=== PATIENT | female | born 1980 | race Caucasian/White ===

== ENCOUNTER 2016-08-16 07:52 | Outpatient (CLI) | payer OTHER ==
[~2016-08-16] VITALS: Ht 152.4 cm; Wt 73.9 kg
[~2016-08-16 07:52] MED LIST: ENDOCET 5-3251 EACH PO; MOTRIN800 MG PO; Zofran PO
[2016-08-16 08:10] VITALS: BP 137/89
[2016-08-16] MEDS ORDERED: DICLEGIS DR 101 EACH PO (08:27)
[2016-08-16] MEDS ORDERED: PROMETHAZINE HC25 M1 PO (08:28)
[2016-08-16] MEDS ORDERED: IMITREX100 MG PO (08:28)
[2016-08-16] MEDS ORDERED: PRENATAL TABLE1 EAC3 PO (08:29)
[2016-08-16] MEDS ORDERED: PAMELOR50 MG PO (08:30)
[2016-08-16 09:02] VITALS: BP 130/91
[2016-08-16 09:22] LABS: ADD MIUA? YES; BILIRUBIN NEGATIVE; BLOOD SMALL; COLOR AMBER ((YELLOW)); GLUCOSE (STRIP) NEGATIVE; KETONES 80; LEUKOCYTES NEGATIVE; NITRITE NEGATIVE; PROTEIN (STRIP) 30; SPECIFIC GRAVITY 1.023 (1.000-1.030); UROBILINOGEN 0.2 MG/DL (0.2-1.0)
[2016-08-16 09:32] LABS: BACTERIA NONE SEEN /HPF; EPITHELIAL CELLS RARE /HPF; MUCUS 3+ /LPF; UCUL ADDED? NO; WHITE BLOOD CELLS 0-5 /HPF (0-5)
[2016-08-16 10:04] VITALS: BP 121/64
[2016-08-16 10:55] VITALS: BP 120/59
== END 2016-08-16 12:40 | disposition home or self-care (01) ==
LOC: LDRP-OP → 2WEST 07:54 → LDRP-OP 11-24 12:00
PROVIDERS: Midwife
DX: O21.0 Mild hyperemesis gravidarum (principal); O99.89 Other specified diseases and conditions complicating pregnancy, childbirth and the puerperium; Z3A.30 30 weeks gestation of pregnancy
CPT/HCPCS: 59025; 81003; G0378; J2405; J2765; J7030

== ENCOUNTER 2016-08-27 09:28 | Outpatient (CLI) | payer OTHER ==
[~2016-08-27] VITALS: Ht 152.4 cm; Wt 73.9 kg
[~2016-08-27 09:28] MED LIST changes: +DICLEGIS DR 101 EACH PO; +IMITREX100 MG PO; +PAMELOR50 MG PO; +PRENATAL TABLE1 EAC3 PO; +PROMETHAZINE HC25 M1 PO
[2016-08-27 10:07] VITALS: BP 122/81
[2016-08-27 10:28] VITALS: BP 124/81
[2016-08-27 10:48] VITALS: BP 125/79
[2016-08-27 11:08] VITALS: BP 123/78
[2016-08-27 11:37] LABS: UR CREATININE CONCENTRATION 69.3 MG/DL
[2016-08-27 11:47] LABS: EOSINOPHIL (%) 0.4 % (0-5); HEMATOCRIT 33.9 % (36.0-46.0); IMMATURE GRANULOCYTE (%) 0.4 % (0.0-0.7); IMMATURE GRANULOCYTE COUNT 0.1 K/uL; LYMPHOCYTE COUNT 1.6 K/uL (1.0-2.8); MCH 30.6 PG (29.0-34.0); MCV 92.6 FL (83-99); MEAN PLAT.VOLUME 9.6 uM^3 (9.5-12.4); MONOCYTE (%) 4.7 % (3-12); MONOCYTE COUNT 0.5 K/uL (0-0.8); NEUTROPHIL (%) 79.8 % (45-76); PLATELET COUNT 200 K/uL (156-360); RBC DIS.WIDTH-SD 43.7 % (39-53); RED BLOOD COUNT 3.66 M/uL (3.80-5.20); WHITE BLOOD COUNT 11.3 K/uL (4.1-10.2)
[2016-08-27 12:04] LABS: ANION GAP 11 MEQ/L (2-14); CHLORIDE 106 MEQ/L (99-109); POTASSIUM 3.5 MEQ/L (3.7-5.4); SAMPLE HEMOLYSIS CHECK 0; SAMPLE ICTERIC CHECK 0; SAMPLE LIPEMIA CHECK 0; SODIUM 138 MEQ/L (136-147); TOTAL BILIRUBIN 0.3 MG/DL (0.0-1.0)
[2016-08-27 12:10] LABS: ALKALINE PHOSPHATASE 68 IU/L (3-129); GFR ESTIMATE (CALCULATED) > 59 mL/min/; GLUCOSE 73 mg/dL (70-99); UREA NITROGEN (BUN) 5 mg/dL (9-23)
== END 2016-08-27 12:48 | disposition home or self-care (01) ==
LOC: LDRP-OP 09:28 → 2WEST 09:29 → LDRP-OP 11-24 13:44
PROVIDERS: Nurse Practitioner
DX: O26.893 Other specified pregnancy related conditions, third trimester (principal); Z3A.31 31 weeks gestation of pregnancy; R51 Headache; R03.0 Elevated blood-pressure reading, without diagnosis of hypertension; O09.523 Supervision of elderly multigravida, third trimester; O34.219 Maternal care for unspecified type scar from previous cesarean delivery
CPT/HCPCS: 59025; 80053; 82570; 84156; 85025; G0378

== ENCOUNTER 2016-10-08 10:04 | Outpatient (CLI) | payer OTHER ==
[2016-10-08] VITALS (16 sets, daily range): BP systolic 125–146; BP diastolic 76–92
[2016-10-08 12:37] LABS: BASOPHIL COUNT 0.1 K/uL (0-0.1); EOSINOPHIL (%) 0.5 % (0-5); EOSINOPHIL COUNT 0.1 K/uL (0-0.3); HEMATOCRIT 30.9 % (36.0-46.0); IMMATURE GRANULOCYTE (%) 1.2 % (0.0-0.7); IMMATURE GRANULOCYTE COUNT 0.1 K/uL; INSTRUMENT ABS NEUTROPHIL CT 6.7 K/uL; LYMPHOCYTE COUNT 1.7 K/uL (1.0-2.8); MCV 91.2 FL (83-99); MEAN PLAT.VOLUME 9.8 uM^3 (9.5-12.4); MONOCYTE (%) 6.9 % (3-12); MONOCYTE COUNT 0.6 K/uL (0-0.8); NEUTROPHIL (%) 72.3 % (45-76); NEUTROPHIL COUNT 6.7 K/uL (1.8-6.4); PLATELET COUNT 209 K/uL (156-360); RBC DIS.WIDTH-SD 42.4 % (39-53); RED BLOOD COUNT 3.39 M/uL (3.80-5.20); WHITE BLOOD COUNT 9.3 K/uL (4.1-10.2)
[2016-10-08 12:49] LABS: UR CREATININE CONCENTRATION 42.2 MG/DL
[2016-10-08 12:50] LABS: ALKALINE PHOSPHATASE 100 IU/L (3-129); ANION GAP 11 MEQ/L (2-14); CHLORIDE 108 MEQ/L (99-109); GFR ESTIMATE (CALCULATED) > 59 mL/min/; GLUCOSE 72 mg/dL (70-99); POTASSIUM 3.4 MEQ/L (3.7-5.4); SAMPLE HEMOLYSIS CHECK 0; SAMPLE ICTERIC CHECK 0; SAMPLE LIPEMIA CHECK 0; SODIUM 140 MEQ/L (136-147); TOTAL BILIRUBIN 0.2 MG/DL (0.0-1.0); UREA NITROGEN (BUN) 5 mg/dL (9-23)
== END 2016-10-08 14:30 | disposition home or self-care (01) ==
LOC: LDRP-OP 10:04 → 2WEST 10:05 → LDRP-OP 11-24 13:05
PROVIDERS: Midwife
DX: O26.893 Other specified pregnancy related conditions, third trimester (principal); R03.0 Elevated blood-pressure reading, without diagnosis of hypertension; Z3A.37 37 weeks gestation of pregnancy; O09.523 Supervision of elderly multigravida, third trimester; O34.211 Maternal care for low transverse scar from previous cesarean delivery
CPT/HCPCS: 59025; 80053; 82570; 84156; 85025; 86850; 86900; 86901; G0378

== ENCOUNTER 2016-10-17 05:25 | Inpatient (IN) | payer OTHER ==
[~2016-10-17] VITALS: Ht 152.4 cm; Wt 77.0 kg
[2016-10-17] VITALS (8 sets, daily range): BP systolic 95–140; BP diastolic 53–87
[~2016-10-17 05:25] MED LIST changes: +AVENTYL,PAMELOR50 MG PO; +CLARITIN10 M3 PO; +FIORICET 50-301 EACH PO
[2016-10-17] MEDS ORDERED: ENDOCET 5-3251 EACH PO (10:10)
[2016-10-17] MEDS ORDERED: IBUPROFEN800 MG PO (10:10)
[2016-10-18] VITALS (7 sets, daily range): BP systolic 93–133; BP diastolic 63–80
[2016-10-18 08:25] LABS: EOSINOPHIL (%) 1.1 % (0-5); EOSINOPHIL COUNT 0.2 K/uL (0-0.3); HEMATOCRIT 21.7 % (36.0-46.0); IMMATURE GRANULOCYTE (%) 0.8 % (0.0-0.7); IMMATURE GRANULOCYTE COUNT 0.1 K/uL; INSTRUMENT ABS NEUTROPHIL CT 10.4 K/uL; MCH 30.6 PG (29.0-34.0); MCHC 32.3 G/DL (30.0-36.0); MCV 94.8 FL (83-99); MEAN PLAT.VOLUME 10.2 uM^3 (9.5-12.4); MONOCYTE COUNT 1.3 K/uL (0-0.8); NEUTROPHIL (%) 74.3 % (45-76); NEUTROPHIL COUNT 10.4 K/uL (1.8-6.4); PLATELET COUNT 159 K/uL (156-360); RBC DIS.WIDTH-CV 13.4 % (11.8-14.6); RBC DIS.WIDTH-SD 45.4 % (39-53)
[2016-10-18 08:29] LABS: RED BLOOD COUNT 2.29 M/uL (3.80-5.20)
[2016-10-19 06:30] LABS: EOSINOPHIL (%) 1.4 % (0-5); EOSINOPHIL COUNT 0.2 K/uL (0-0.3); HEMATOCRIT 21.1 % (36.0-46.0); IMMATURE GRANULOCYTE (%) 1.1 % (0.0-0.7); IMMATURE GRANULOCYTE COUNT 0.1 K/uL; INSTRUMENT ABS NEUTROPHIL CT 10.2 K/uL; LYMPHOCYTE COUNT 1.7 K/uL (1.0-2.8); MCH 30.4 PG (29.0-34.0); MCHC 32.2 G/DL (30.0-36.0); MCV 94.2 FL (83-99); MEAN PLAT.VOLUME 9.6 uM^3 (9.5-12.4); MONOCYTE (%) 7.7 % (3-12); NEUTROPHIL (%) 76.9 % (45-76); NEUTROPHIL COUNT 10.2 K/uL (1.8-6.4); PLATELET COUNT 175 K/uL (156-360); RBC DIS.WIDTH-CV 13.5 % (11.8-14.6); RBC DIS.WIDTH-SD 45.7 % (39-53); RED BLOOD COUNT 2.24 M/uL (3.80-5.20); WHITE BLOOD COUNT 13.2 K/uL (4.1-10.2)
[2016-10-19 07:18] VITALS: BP 134/88
[2016-10-19 15:58] VITALS: BP 131/82
[2016-10-19 16:29] VITALS: BP 130/77
[2016-10-19 17:31] VITALS: BP 151/78
[2016-10-19 18:31] VITALS: BP 137/76
[2016-10-19 23:41] VITALS: BP 128/86
[2016-10-20 07:36] LABS: INTER. NORMALIZED RATIO 0.9; PROTHROMBIN TIME 9.5 (9.2-11.2)
[2016-10-20 07:41] LABS: EOSINOPHIL (%) 4.4 % (0-5); EOSINOPHIL COUNT 0.4 K/uL (0-0.3); HEMATOCRIT 25.4 % (36.0-46.0); IMMATURE GRANULOCYTE (%) 1.5 % (0.0-0.7); IMMATURE GRANULOCYTE COUNT 0.1 K/uL; INSTRUMENT ABS NEUTROPHIL CT 6.1 K/uL; LYMPHOCYTE COUNT 1.5 K/uL (1.0-2.8); MCH 30.5 PG (29.0-34.0); MCHC 32.7 G/DL (30.0-36.0); MCV 93.4 FL (83-99); MEAN PLAT.VOLUME 9.5 uM^3 (9.5-12.4); MONOCYTE (%) 10.4 % (3-12); MONOCYTE COUNT 0.9 K/uL (0-0.8); NEUTROPHIL (%) 67.1 % (45-76); NEUTROPHIL COUNT 6.1 K/uL (1.8-6.4); NRBC (%) 0.2 /100 WBC (0-0); PLATELET COUNT 196 K/uL (156-360); RBC DIS.WIDTH-CV 14.5 % (11.8-14.6); RBC DIS.WIDTH-SD 48.1 % (39-53); RED BLOOD COUNT 2.72 M/uL (3.80-5.20); WHITE BLOOD COUNT 9.1 K/uL (4.1-10.2)
[2016-10-20 07:48] VITALS: BP 130/80
[2016-10-20 07:55] LABS: ANION GAP 7 MEQ/L (2-14); CHLORIDE 104 MEQ/L (99-109); GFR ESTIMATE (CALCULATED) > 59 mL/min/; GLUCOSE 86 mg/dL (70-99); SAMPLE HEMOLYSIS CHECK 0; SAMPLE ICTERIC CHECK 0; SAMPLE LIPEMIA CHECK 0; SODIUM 138 MEQ/L (136-147); UREA NITROGEN (BUN) 5 mg/dL (9-23)
[2016-10-20] MEDS ORDERED: DOCUSATE SODIU100 MG PO (13:03)
[2016-10-20] MEDS ORDERED: CLEOCIN150 MG PO (13:03)
[2016-10-20] MEDS ORDERED: FERROUS SULFAT325 MG PO (13:03)
[2016-10-20] MEDS ORDERED: IBUPROFEN800 MG PO (13:03)
[2016-10-20] MEDS ORDERED: CLEOCIN300 MG PO (13:16)
[2016-10-20] MEDS ORDERED: CLINDAMYCIN HC300 MG PO (13:19)
[2016-10-20 13:58] VITALS: BP 136/92
[2016-10-20 23:07] VITALS: BP 125/76
[2016-10-21 07:35] VITALS: BP 130/81
== END 2016-10-21 17:15 | disposition home or self-care (01) | DRG 766 ==
LOC: 2SOUTH → 2WEST 06:13 → 2SOUTH 10:35 → 2WEST 10-21 17:15
PROVIDERS: Obstetrics & Gynecology
PROC: 10D00Z1 Extraction of Products of Conception, Low, Open Approach (ICD-10-PCS; principal; 2016-10-17)
PROC: 30233N1 Transfusion of Nonautologous Red Blood Cells into Peripheral Vein, Percutaneous Approach (ICD-10-PCS; principal; 2016-10-17)
DX: O13.4 Gestational [pregnancy-induced] hypertension without significant proteinuria, complicating childbirth (principal); O72.1 Other immediate postpartum hemorrhage; O90.81 Anemia of the puerperium; O15.1 Eclampsia complicating labor; Z3A.39 39 weeks gestation of pregnancy; Z37.0 Single live birth
CPT/HCPCS: 80048; 80053; 81003; 84132; 85025; 85610; 85730; 86900; 86901; 86920; J1100; J1170; J1580; J2274; J2405; J2765; J7050; J7120; P9016